=== PATIENT | male | born 1950 | race Caucasian/White ===

== ENCOUNTER 2018-08-09 19:50 | Emergency (ER) | payer MEDICARE, OTHER ==
--- NOTE | 2018-08-09 20:05 | EDM.PDOC ---
ED HPI GENERAL MEDICAL PROBLEM - General Chief Complaint: Gastrointestinal Problem Stated Complaint: HEART PROBLEMS [id number] Time Seen by Provider: 08/09/18 20:00 Source of Information: Reports: Patient, Family History Limitations: Reports: No Limitations - History of Present Illness INITIAL COMMENTS - FREE TEXT/NARRATIVE: states was about to have dinner than got light headed dizzy, got up to bathroom and vomited, denies CP/SOB but had 5x stents last one few years ago. denies chest or arm discomfort but feels very weak and no energy. is diabetic. BS 110. - Related Data Allergies Allergy/AdvReac Type Severity Reaction Status Date / Time Penicillins Allergy Rash Verified 08/09/18 19:59 Home Meds: Home Meds Albuterol Sulfate [Proair Respiclick] 90 mcg IH ASDIRECTED PRN 08/09/18 [History ] Atenolol 100 mg PO DAILY 08/09/18 [History] Budesonide [Pulmicort] 0.5 mg IH BID 08/09/18 [History] Cholecalciferol (Vitamin D3) [Vitamin D] 1,000 unit PO DAILY 08/09/18 [History] Folic Acid 1 mg PO DAILY 08/09/18 [History] Gabapentin [Neurontin] 100 mg PO QPM 08/09/18 [History] Insulin Glarg,Human.Rec.Analog [Lantus] 100 unit SUBCUT QPM 08/09/18 [History] Isosorbide Mononitrate [Imdur] 60 mg PO BID 08/09/18 [History] Ramipril [Altace] 10 mg PO DAILY 08/09/18 [History] Tamsulosin HCl 0.4 mg PO DAILY 08/09/18 [History] atorvaSTATin Calcium [Atorvastatin Calcium] 80 mg PO DAILY 08/09/18 [History] glipiZIDE [Glucotrol] 10 mg PO BID 08/09/18 [History] metFORMIN [Glucophage] 1,000 mg PO BIDMEALS 08/09/18 [History] ED ROS GENERAL - Review of Systems Review Of Systems: ROS reveals no pertinent complaints other than HPI. ED EXAM, GENERAL - Physical Exam Exam: See Below Exam Limited By: No Limitations General Appearance: Alert, WD/WN, Mild Distress, Other (discomfort) Ears: Hearing Grossly Normal Throat/Mouth: Normal Voice, No Airway Compromise Head: Atraumatic Neck: Non-Tender, Full Range of Motion Respiratory/Chest: No Respiratory Distress Cardiovascular: Regular Rate, Rhythm GI/Abdominal: Soft, Non-Tender Extremities: Pedal Edema, Other (3+ bilateral) Neurological: Alert, Oriented, Normal Cognition, Normal Gait, No Motor/Sensory Deficits Psychiatric: Normal Affect, Normal Mood Skin Exam: Warm, Dry, Normal Color Lymphatic: No Adenopathy Course - Vital Signs Last Recorded V/S: Last Vital Signs Temp 36.3 C 08/09/18 22:41 Pulse 67 08/09/18 22:41 Resp 18 08/09/18 22:41 BP 139/55 L 08/09/18 22:41 Pulse Ox 95 08/09/18 22:41 - Orders/Labs/Meds Orders: Active Orders 24 hr Category Date Time Status EKG Documentation Completion [RC] STAT Care 08/09/18 19:59 Active Labs: Laboratory Tests 08/09/18 08/09/18 08/09/18 Range/Units 19:52 20:08 20:08 WBC 7.7 (5.0-10.0) 10^3/uL RBC 3.91 L (4.6-6.2) 10^6/uL Hgb 12.3 L (14.0-18.0) g/dL Hct 37.0 L (40.0-54.0) % MCV 94.6 (80-100) fL MCH 31.5 (27.0-34.0) pg MCHC 33.2 (33.0-35.0) g/dL Plt Count 176 (150-450) 10^3/uL Neut % (Auto) 55.8 (42.2-75.2) % Lymph % (Auto) 33.4 (20.5-50.1) % [place] % (Auto) 6.5 (2-8) % Eos % (Auto) 4.0 H (1.0-3.0) % Baso % (Auto) 0.3 (0.0-1.0) % Sodium 141 (135-145) mmol/L Potassium 3.8 (3.6-5.0) mmol/L Chloride 105 (101-111) mmol/L Carbon Dioxide 29.0 (21.0-31.0) mmol/L Anion Gap 10.8 BUN 16 (7-18) mg/dL Creatinine 1.1 (0.6-1.3) mg/dL Est Cr Clr Drug Dosing 73.69 mL/min Estimated GFR (MDRD) > 60 BUN/Creatinine Ratio 14.54 Glucose 118 H (74-105) mg/dL POC Glucose 110 H (70-105) mg/dl Calcium 8.7 (8.4-10.2) mg/dl Total Bilirubin 0.7 (0.2-1.0) mg/dL AST 21 (10-42) IU/L ALT 18 (10-60) IU/L Alkaline Phosphatase 78 (42-121) IU/L Troponin I < 0.02 (0.00-0.02) ng/ml B-Natriuretic Peptide 63 (0-100) pg/ml Total Protein 7.0 (6.7-8.2) g/dl Albumin 4.0 (3.2-5.5) g/dl Globulin 3.0 Albumin/Globulin Ratio 1.33 - Re-Assessments/Exams Free Text/Narrative Re-Assessment/Exam: 08/09/18 20:46 re-exam; states feels better right now, states while sitting up for xray he felt a bubble passed in his abd and now feels fine. 08/09/18 21:20 results discussed with pt who remains feeling fine. states he almost finished his T-bone steak and suddenly felt like the room was spinning and he vomited and felt better, then it happened again and vomited and felt better but started sweating profusely without CP/SOB. decided to come here. right now he feels good since the bubble in his stomach went away when he sat up the get his xray done. Departure - Departure Time of Disposition: 22:45 Disposition: Home, Self-Care 01 Condition: Good Clinical Impression: Vomiting, Vertigo - Discharge Information Instructions: Vertigo, [id number] Referrals: PCP,Not In Area [Primary Care Provider] - Forms: ED Department Discharge Additional Instructions: 1) rest 2) recheck if there is any change or concern - My Orders Last 24 Hours: My Active Orders 08/09/18 19:59 EKG Documentation Completion [RC] STAT - Assessment/Plan Last 24 Hours: My Active Orders 08/09/18 19:59 EKG Documentation Completion [RC] STAT
[2018-08-09 20:39] LABS: ANION GAP 10.8; CHLORIDE,CL 105 mmol/L (101-111); SODIUM,NA 141 mmol/L (135-145)
== END 2018-08-09 22:48 | disposition home or self-care (01) ==
LOC: DL.ED 19:50
DX: R42 Dizziness and giddiness (principal); R11.10 Vomiting, unspecified; Z88.0 Allergy status to penicillin; Z79.899 Other long term (current) drug therapy; Z79.4 Long term (current) use of insulin
CPT/HCPCS: 36415; 71045; 80053; 82962; 83880; 84484; 85025; 93005; 93010; 99284

== ENCOUNTER 2025-06-22 20:22 | Emergency (ER) | payer MEDICARE, OTHER ==
[2025-06-22 20:45] LABS: BASOPHILS PERCENT AUTO 0.1 % (0.0-1.0); EOSINOPHILS PERCENT AUTO 1.2 % (1.0-3.0); LYMPHOCYTES PERCENT AUTO 18.3 % (20.5-50.1); MONOCYTES PERCENT AUTO 4.7 % (2-8); NEUTROPHILS PERCENT AUTO 75.7 % (42.2-75.2); PLATELET COUNT,PLT 416 10^3/uL (150-450); RED BLOOD CELL COUNT 3.32 10^6/uL (4.6-6.2); WHITE BLOOD CELL COUNT,WBC 13.7 10^3/uL (5.0-10.0)
[2025-06-22 21:03] LABS: B-TYPE NATRIURETIC PEPTIDE,BNP 384.0 pg/ml (0-100)
[2025-06-22] MEDS: Furosemide 40 MG/4 ML VIAL IVPUSH ONE (21:10)
[2025-06-22 21:20] LABS: LACTIC ACID 3.3 mmol/L (0.4-2.0)
[2025-06-22 21:24] LABS: ALANINE AMINOTRANSFERASE,ALT 26.0 U/L (16-63); ASPARTATE AMNIOTRANSFERASE,AST 34.0 U/L (15-37); BILIRUBIN TOTAL 0.8 mg/dL (0.2-1.0); BLOOD UREA NITROGEN,BUN 37.0 mg/dL (7-18); CARBON DIOXIDE,CO2 29.0 mmol/L (21-32); CHLORIDE,CL 98.0 mmol/L (98-107); CREATININE 2.99 mg/dL (0.70-1.30); EST CRCL DRUG DOSING (CG) 23.07 mL/min; GLUCOSE RANDOM 162.0 mg/dL (70-99); POTASSIUM,K 4.2 mmol/L (3.5-5.1); PROTEIN TOTAL,TP 6.9 g/dL (6.4-8.2); SODIUM,NA 136.0 mmol/L (136-145); TSH ULTRASENSITIVE 4.74 uIU/mL (0.36-3.74)
[2025-06-22 21:25] LABS: ESTIMATED GFR 21.0 mL/min (>=60)
[2025-06-22 21:34] LABS: A/G RATIO 0.82
[2025-06-22 21:55] LABS: APPEARANCE,URINE CLOUDY (CLEAR); GLUCOSE,URINE 100 (NEGATIVE); OCCULT BLOOD,URINE SMALL (NEGATIVE)
[2025-06-22] MEDS: Heparin Sodium 5,000 Units/ML Vial IV ONE (21:57)
[2025-06-22] MEDS: Heparin Sodium/0.45% NaCl 25,000 UNITS/500 ML BAG IV SCH (21:58)
[2025-06-22 22:12] LABS: EPITHELIAL CELLS,URINE FEW /HPF (NOT SEEN)
== END 2025-06-23 03:07 ==
LOC: DL.ED 20:22
DX: I21.4 Non-ST elevation (NSTEMI) myocardial infarction (principal); I13.0 Hypertensive heart and chronic kidney disease with heart failure and stage 1 through stage 4 chronic kidney disease, or unspecified chronic kidney disease; N18.9 Chronic kidney disease, unspecified; I50.9 Heart failure, unspecified; E11.22 Type 2 diabetes mellitus with diabetic chronic kidney disease; E78.00 Pure hypercholesterolemia, unspecified; J45.909 Unspecified asthma, uncomplicated; R94.6 Abnormal results of thyroid function studies; Z95.5 Presence of coronary angioplasty implant and graft; Z88.0 Allergy status to penicillin; Z91.048 Other nonmedicinal substance allergy status; Z79.51 Long term (current) use of inhaled steroids; Z79.899 Other long term (current) drug therapy; Z79.4 Long term (current) use of insulin; Z79.84 Long term (current) use of oral hypoglycemic drugs
CPT/HCPCS: 36415; 51702; 71045; 80053; 81001; 82947; 83605; 83690; 83735; 83880; 84145; 84439; 84443; 84484; 85025; 85730; 87086; 93005; 96365; 96366; 96375; 96376; 99285; A9270; J1644; J1938